=== PATIENT | female | born 1965 | race Caucasian/White ===

== ENCOUNTER → 2019-12-11 15:57 | Outpatient (BNVA) | payer MEDICARE, SELFPAY | PROVIDERS: Family Provider Family Medicine; PCP Family Medicine; Referring Provider Family Medicine; Visit Provider Nurse Practitioner Family | DX: S52.502A Unspecified fracture of the lower end of left radius, initial encounter for closed fracture (principal); X58.XXXA Exposure to other specified factors, initial encounter | CPT/HCPCS: 73090 ==

== ENCOUNTER 2020-06-14 12:59 | Outpatient (CLI) | payer MEDICARE, SELFPAY ==
--- NOTE | 2020-06-14 12:45 | USCV_ITS ---
Kaylynn House Age: 55 Gender: F : 1965 Exam Date: 06/14/2020 13:19 Ordering Phys: STEPHANIE GARCIA DO Technologist: Sharee Lugo [place]am [place] [facility] [place]: syncope and collapse ? HOCM BP: / HR: 80 Rhythm: Sinus Technical Quality: Good MEASUREMENTS (Male / Female) Normal Values 2D ECHO LV Diastolic Diameter PLAX 3.6 cm 4.2 - 5.9 / 3.9 - 5.3 cm LV Systolic Diameter PLAX 1.9 cm IVS Diastolic Thickness 1.1 cm 0.6 - 1.0 / 0.6 - 0.9 cm IVS Systolic Thickness 1.8 cm LVPW Diastolic Thickness 0.9 cm 0.6 - 1.0 / 0.6 - 0.9 cm LVPW Systolic Thickness 1.2 cm LV Ejection Fraction 2D Teich 80.4 % LV Ejection Fraction MOD 2C 66.9 % LV Ejection Fraction 2C AL 63.6 % LA Diameter 3.4 cm LA Width 3.4 cm LA Height 4.8 cm RA Width 2.7 cm RA Height 4.1 cm M-MODE LV Diastolic Diameter MM 4.4 cm 4.2 - 5.9 / 3.9 - 5.3 cm LV Systolic Diameter MM 2.9 cm LV Ejection Fraction MM Teich 64.3 % IVS Diastolic Thickness MM 0.6 cm 0.6 - 1.0 / 0.6 - 0.9 cm IVS Systolic Thickness MM 1.2 cm LVPW Diastolic Thickness MM 0.7 cm 0.6 - 1.0 / 0.6 - 0.9 cm LVPW Systolic Thickness MM 1.2 cm Aortic Annulus Diameter 3.0 cm LA Ao Ratio MM 1.1 MV E Point Septal Separation 0.1 cm DOPPLER AV Peak Velocity 124.0 cm/s LVOT Peak Velocity 130.0 cm/s MV Peak Velocity 91.0 cm/s MV Area PHT 3.5 cm squared Mitral E to A Ratio 0.8 MV E' Velocity 6.0 cm/s Mitral E to MV E' Ratio 9.6 Mitral E to LV E' Lateral Ratio 11.3 Mitral E to LV E' Septal Ratio 8.5 TR Peak Velocity 68.0 cm/s TR Peak Gradient 1.8 mmHg Right Atrial Pressure 3.0 mmHg Pulmonary Artery Systolic Pressu 4.8 mmHg PV Peak Velocity 108.0 cm/s RV Acceleration Time 0.1 s FINDINGS Left Ventricle Normal left ventricular size, systolic function and wall thickness, with no regional wall motion abnormalities. Left ventricular ejection fraction is estimated at 68 %. Normal diastolic function. Right Ventricle Normal right ventricular size and systolic function. Right ventricular systolic pressure 4.8 mmHg. Right Atrium Normal right atrial size. Right atrial pressure estimated at 3 mm Hg. Left Atrium Normal left atrial size. Mitral Valve Structurally normal mitral valve. No mitral valve stenosis. No significant mitral valve regurgitation. Aortic Valve Structurally normal trileaflet aortic valve. No aortic valve stenosis. No aortic valve regurgitation. Tricuspid Valve Structurally normal tricuspid valve. No tricuspid valve stenosis. Trace tricuspid valve regurgitation. Pulmonic Valve Structurally normal pulmonic valve. No pulmonary valve stenosis. Trace pulmonary valve regurgitation. Pericardium No pericardial effusion. Normal sized inferior vena cava. Aorta Normal size aortic root and proximal ascending aorta. CONCLUSIONS 1. Normal left ventricular size, systolic function and wall thickness, with no regional wall motion abnormalities. Left ventricular ejection fraction is estimated at 68 %. Normal diastolic function. 2. No significant valvular abnormality. 3. Normal pulmonary artery pressure. 4. No pericardial effusion. 5. No prior similar studies to compare. Leah Caba MD (Electronically Signed) Final Date: 15 June 2020 22:09 S
== END 2020-06-14 13:00 | disposition home or self-care (01) ==
LOC: US 13:01
PROVIDERS: PCP Family Medicine; Visit Provider Internal Medicine
DX: R55 Syncope and collapse (principal)
CPT/HCPCS: 93306

== ENCOUNTER 2020-07-12 11:44 | Outpatient (CLI) | payer MEDICARE, SELFPAY ==
--- NOTE | 2020-07-12 11:58 | MM_ITS ---
WS: [id number] SCREENING DIGITAL MAMMOGRAM WITH CAD HISTORY: SCREENING COMPARISON: 12/28/2017 and 11/22/2017 Bilateral CC and MLO views submitted. Computer aided detection analyzed. Breast composition: The breasts are heterogeneously dense, which may obscure small masses. Slightly lobulated 9.6 mm mass at a middle depth LEFT upper outer quadrant. New since the prior study . No distortion. No additional abnormalities. MM/[place] [id number] IMPRESSION: BI-RADS: 0-Incomplete: Need additional imaging evaluation FOLLOW UP: Need Additional Imaging LEFT breast: Spot compression views (CC and MLO). True ML. Ultrasound to follow if abnormality persists.
== END 2020-07-12 11:45 | disposition home or self-care (01) ==
LOC: RADSHAW 11:48
PROVIDERS: PCP Internal Medicine; Visit Provider Internal Medicine
DX: Z12.31 Encounter for screening mammogram for malignant neoplasm of breast (principal); N63.21 Unspecified lump in the left breast, upper outer quadrant
CPT/HCPCS: 77067

== ENCOUNTER 2020-08-05 12:51 | Outpatient (CLI) | payer MEDICARE, SELFPAY ==
--- NOTE | 2020-08-05 13:08 | US_ITS ---
WS: [id number] ADDITIONAL VIEWS LEFT MAMMOGRAM LEFT BREAST ULTRASOUND HISTORY: LT BREAST MASS COMPARISON: 07/12/2020, 11/22/2017 LEFT MAMMOGRAM: Spot compression views and true ML. Persistent ovoid mass measuring 8 mm LEFT breast at 12:00 posterior. Mass is new since 2018. There ar e additional small and partially obscured nodule or nodules at the 3:00 axis of the LEFT breast at a middle depth. LEFT BREAST ULTRASOUND 2-D and color Doppler imaging submitted. 12:00 LEFT breast 3 cm to the nipple is a hypoechoic nodule with slight through transmission measurin g 7 x 5 x 6 mm. No increased vascularity. Corresponds to the mammographic abnormality. At 3:00, 1 cm from the nipple is a hypoechoic mass measuring 5 x 5 x 5 mm with minimal through transmission. There is an adjacent small benign lymph node. US/US breast LT limited* [id number] IMPRESSION: BI-RADS: 3-Probably Benign FOLLOW UP: 6 Month Follow-up Recommend LEFT breast follow-up ultrasound in 6 months to evaluate the minimall y complex cysts at 12 and 3:00 for stability.
== END 2020-08-05 12:52 | disposition home or self-care (01) ==
LOC: RADSHAW 12:53
PROVIDERS: PCP Internal Medicine; Visit Provider Internal Medicine
DX: N63.25 Unspecified lump in the left breast, overlapping quadrants (principal)
CPT/HCPCS: 76642; 77065

== ENCOUNTER 2020-10-13 10:34 | Outpatient (CLI) | payer MEDICARE, SELFPAY ==
--- NOTE | 2020-10-13 10:43 | US_ITS ---
WS: [id number] ULTRASOUND PELVIS TECHNIQUE: Transabdominal and transvaginal. ULTRASOUND PELVIS TECHNIQUE: Transabdominal. CLINICAL INFORMATION: PELVIC PAIN : No. COMPARISON: None. FINDINGS: Incidental uterine calcifications. A few incidental small cysts in the uterus. Orientation: Anteverted. Size: 6.5 cm x 3.8 cm x 3.1 cm. Masses: None. Endometrium: Normal. Endometrium thickness: 0.4 cm. Adnexa: Left ovary not well visualized. Right ovary size: 1.9 cm x 1.1 cm x 1.0 cm. Right ovary volume: 1.1 ccm3. Free fluid: None. Other findings: None. US/US pelvic with transvaginal IMPRESSION: 1. Unremarkable uterus with normal thickness endometrium measuring 3.6 mm. 2. Incidental uterine calcifications. 3. Normal right ovary. Left ovary not well visualized. 4. No free fluid in the cul-de-sac.
--- NOTE | 2020-10-26 10:15 | US_ITS ---
WS: [id number] ULTRASOUND ABDOMEN LIMITED CLINICAL INFORMATION: ALKALINE PHOSPHATASE/PELVIC PAIN COMPARISON: Ultrasound pelvis October 13, 2020 FINDINGS: Liver Size: Normal. Craniocaudal length: 14.1 cm. Echogenicity: Normal. Surface nodularity: None. Mass (size and location): None. Bile ducts Intrahepatic ducts: Normal. Common bile duct diameter: 0.3 cm. Gallbladder Normal. Gallstones: None. Gallbladder sludge: None. Gallbladder wall thickening: None. Pericholecystic fluid: None. Sonographic Ryan sign: Absent. Pancreas Normal as visualized. Right kidney: Normal. Hydronephrosis: None. Size: 10.2 cm x 4.2 cm x 3.4 cm. Abdominal aorta and IVC Visualized portions are normal. Ascites: None.
== END 2020-10-13 10:35 | disposition home or self-care (01) ==
LOC: US 10:37
PROVIDERS: PCP Internal Medicine; Visit Provider Nurse Practitioner Family
DX: R10.2 Pelvic and perineal pain (principal); R74.8 Abnormal levels of other serum enzymes
CPT/HCPCS: 76830; 76856

== ENCOUNTER 2020-10-26 09:13 | Outpatient (CLI) | payer MEDICARE, SELFPAY ==
--- NOTE | 2020-10-26 | US_ITS ---
WS: [id number] ULTRASOUND ABDOMEN LIMITED CLINICAL INFORMATION: ALKALINE PHOSPHATASE/PELVIC PAIN COMPARISON: Ultrasound pelvis October 13, 2020 FINDINGS: Liver Size: Normal. Craniocaudal length: 14.1 cm. Echogenicity: Normal. Surface nodularity: None. Mass (size and location): None. Bile ducts Intrahepatic ducts: Normal. Common bile duct diameter: 0.3 cm. Gallbladder Normal. Gallstones: None. Gallbladder sludge: None. Gallbladder wall thickening: None. Pericholecystic fluid: None. Sonographic Ryan sign: Absent. Pancreas Normal as visualized. Right kidney: Normal. Hydronephrosis: None. Size: 10.2 cm x 4.2 cm x 3.4 cm. Abdominal aorta and IVC Visualized portions are normal. Ascites: None. US/US abdomen limited [id number] IMPRESSION: 1. Normal liver. 2. Normal gallbladder. 3. No hydronephrosis in right kidney.
== END 2020-10-26 09:14 | disposition home or self-care (01) ==
LOC: US 09:17
PROVIDERS: PCP Internal Medicine; Visit Provider Nurse Practitioner Family
DX: R74.8 Abnormal levels of other serum enzymes (principal); R10.2 Pelvic and perineal pain
CPT/HCPCS: 76705